=== PATIENT | male | born 1970 | race Caucasian/White ===

== ENCOUNTER 2018-11-10 09:01 | Day surgery (SDC) | payer OTHER, SELFPAY ==
[2018-11-10] VITALS (8 sets, daily range): BP systolic 111–153; BP diastolic 77–103; PULSE 55–98; RESP 14–17; TEMP 36.6–37.1; O2SAT 98–100; BMI 24.7
--- NOTE | 2018-11-10 09:20 | ED.DCSUM_ITS ---
History of Present Illness Chief Complaint: Male Pain/Injury Informant: Patient Onset: Today - 1 to 1.5 hours prior to presentation, Days - Since seen on November 07 [facility] emergency department and diagnosed with torsion that was detorsed manually and sent home for urology follow-up. Context: Sudden Onset Timing: Continuous Quality: Pain Location: Right testicle Current Severity: Moderate Maximum Severity: Severe Worsened by: Movement Relieved by: Nothing Associated Symptoms: Nausea Narrative: Sent is a 48-year-old male who has no past medical history and is a non-smoker and nondrinker who presents with abrupt onset of right testicular pain that awoke him from sleep. States he had similar presentation on Saturday. He was seen at outside facility. There was an ultrasound performed that revealed torsion of the right testicle. The right testicle was detorsed by the emergency physician. There was documentation of flow after detorsion. Patient was referred to urology. Patient has no other complaints or symptoms. Her head eating the drink since last evening. Prior similar symptoms: Yes - November 07 Recent Illness/Hospitalization: No - November 07 - Past Medical History (1) Torsion of right testicle Status: Acute Past Medical History - Allergies and Home Meds Allergies/Adverse Reactions: Allergies No Known Allergies Allergy (Verified 11/10/18 09:02) Primary Care Physician: [place], [place] [Primary Care Provider] - Prior records reviewed: Yes - Torsion right testicle Surgical History: no surgical history Lives: Alone Smoking Status: Never smoker Alcohol: None Drugs: None Review of Systems General: Denies: Chills, Fever, Malaise, Sweats Eyes: Denies: Visual changes - bilaterally, Blurred Vision - bilaterally ENT: Denies: Rhinorrhea, Sore throat Cardiovascular: Denies: Chest pain, Palpitations Respiratory: Denies: Dyspnea, Cough, Dyspnea on exertion Gastrointestinal: Reports: Nausea. Denies: Abdominal pain, Vomiting, Diarrhea, Melena, Hematochezia Genitourinary: Denies: Dysuria, Hematuria, Frequency Musculoskeletal: Denies: Myalgias, Arthralgias, Neck pain, Back pain, Swelling, Extremity Pain, -, - Skin: Denies: Rash, Wounds Neurological: Denies: Headache, Weakness, Numbness Hematologic: Denies: Easy bruising, Easy bleeding Physical Exam Vital Signs/Narrative: Vital Signs Temp Pulse Resp BP Pulse Ox 11/10/18 09:02 98.6 F 68 17 126/103 H 99 Inital Vital Signs reviewed: Yes General: Well nourished, Well developed, Acute Distress Head: Normocephalic, Atraumatic Eyes: Perrl, EOMI. Negative for: Pale conjunctiva, Scleral icterus ENT: Moist mucous membranes, No rhinorrhea Cardiovascular: Regular rate, Regular rhythm, No murmurs, Normal S1, Normal S2 Respiratory: No distress, CTA bilaterally Abdomen: Soft, Nontender, Nondistended, Normal bowel sounds Rectal: Deferred : - - Testicle is high riding, tender and swollen. There is no epididymal tenderness. He is circumcised. There is no urethral discharge noted. There is no tenderness of the left testicle. Skin: Normal color, No rash, No Trauma. Negative for: Cyanosis, Diaphoresis, Jaundice Neurological: Alert, Oriented x3, Cranial nerves II-XII grossly intact, Normal Strength, Normal Sensation Psychological: Normal affect, Normal Mood Diagnostic/Tx/Re-eval - Medical Decision Making In light of patient's history and ultrasound findings from outside facility urology was contacted, Dr. Hernandez. Plan is to take patient to the OR. Frontal diagnosis is torsion, epididymitis, orchitis. In light of ultrasound from outside facility gnosis and concern is for acute re-torsion of the right testicle. Urology was contacted and patient will be taken to the operating room. ED Disposition - Plan for ED Patient: Disposition: [facility] Diagnosis: Torsion of right testicle [facility]errals: [facility] [Primary Care Provider] -
[2018-11-10] MEDS: Morphine 4 MG/ML Syringe IV (09:31)
[2018-11-10] MEDS: Ondansetron 4 MG/2 ML Vial IV (09:32)
--- NOTE | 2018-11-10 09:32 | NURSING ---
BEN SURGERY RT TESTICLE TORSON
--- NOTE | 2018-11-10 09:35 | ED.RN ---
REPORT CALLED TO RAGHU IN [facility].
[2018-11-10 09:37] LABS: Hematocrit 47.8 % (40-54); Hemoglobin 15.7 g/dL (13.0-16.5); Mean Corp Hgb Conc 32.8 g/dL (32-36); Mean Corpuscular Hgb 30.8 pg (27.0-32.0); Mean Corpuscular Volume 93.7 fL (80-94); Mean Platelet Vol. 9.8 fl (6.2-12.0); Platelet Count 249 K/mm3 (150-450); RBC Distribution Width CV 12.7 % (11.6-14.6); RBC Distribution Width SD 43.8 fl (35.1-43.9); White Blood Count 11.8 K/mm3 (4.4-11.0)
[2018-11-10 09:53] LABS: Anion Gap 5 (5-15); BUN 11 mg/dL (7-18); BUN/Creat Ratio 10.4 RATIO (10-20); Calcium,Total 9.4 mg/dL (8.5-10.1); Chloride 105 mmol/L (98-107); Creatinine, Serum 1.06 mg/dL (0.70-1.30); EST Glomerular Filtration Rate 80 mL/min (>60); Est Glom Filt Rate - Afr Amer 96 mL/min (>60); Estimated Creatinine Clearance 83.35 ml/min; Glucose 104 mg/dL (74-106); Sodium Level 139 mmol/L (136-145)
--- NOTE | 2018-11-10 10:12 | PCM.CONS.U ---
Reason for Consult Date of Consultation: 11/10/18 Reason for Consultation: Right testicular torsion History of Present Illness: The patient is a 48 year old male who presented to the emergency room with right severe testicular pain ultrasound was done which demonstrated possible torsion of the testicle. He said he presented on Saturday to an outside emergency room with right severe pain was diagnosed with torsion and underwent detorsion in the ER and was sent home. Now he comes back with right testicular torsion and severe pain. Explained to the patient was taken to surgery immediately for exploration as possible as testicle in the right side is necrotic and nonviable he may have to have a right orchiectomy. He also undergo bilateral orchiopexy scrotal. Past Medical History Allergies No Known Allergies Allergy (Verified 11/10/18 09:02) Home Medications: Ambulatory Orders Medication Instructions Recorded Vitamin D 1 dose PO DAILY 11/10/18 Surgical History: no surgical history Lives: Alone Smoking Status: Never smoker Alcohol: None Drugs: None Review of Systems Constitutional: Denies: Chills, Fever, Weight Change HEENT: Denies: Head Aches, Sinus Congestion, Sinus Drainage Cardiovascular: Denies: Chest Pain, Palpitations Respiratory: Denies: Cough, Shortness of breath at rest, Sputum production Gastrointestinal: Denies: Abdominal Pain, Nausea, Vomiting Genitourinary: Denies: Dysuria Musculoskeletal: Denies: Joint Pain, Joint Tenderness Skin: Denies: Rash, Wounds Neurological: Denies: Numbness, Tingling, Focal weakness Psychiatric: Denies: Anxiety, Depression, Homicidal Ideations, Suicidal Ideations Hematologic/ Lymphatic: Denies: Easy Bruising, Easy Bleeding Physical Exam - Physical Exam Vital Signs Temp 98.3 F 11/10/18 09:26 Pulse 76 11/10/18 09:26 Resp 14 11/10/18 09:26 BP 153/84 H 11/10/18 09:26 Pulse Ox 99 11/10/18 09:26 Intake & Output 11/08/18 11/09/18 11/10/18 23:59 23:59 23:59 Weight: 73.7 kg General: Alert, Oriented x3 HEENT: Atraumatic Oral: Moist Mucosa Neck: Supple Lungs: Normal air movement Cardiovascular: Regular Rhythm Abdomen: Soft, Obese - Right testicle swollen tender and high riding Laboratory Tests Past 24 Hrs 11/10/18 11/10/18 09:25 09:25 WBC 11.8 H RBC 5.10 Hgb 15.7 Hct 47.8 MCV 93.7 MCH 30.8 MCHC 32.8 RDW Std Deviation 43.8 RDW Coeff of Abhishek 12.7 Plt Count 249 MPV 9.8 Sodium 139 Potassium 4.0 Chloride 105 Carbon Dioxide 29.0 Anion Gap 5 BUN 11 Creatinine 1.06 Estim Creat Clear Calc 83.35 Est GFR (MDRD) Af Amer 96 Est GFR (MDRD) Non-Af 80 BUN/Creatinine Ratio 10.4 Glucose 104 Calcium 9.4 Assessment/Plan All Active Problems Torsion of right testicle (Acute) Right testicular torsion plan to proceed with scrotal exploration possible orchiectomy if right testicles nonviable necrotic and possible bilateral orchiopexy. Will be taken emergently to surgery today.
--- NOTE | 2018-11-10 10:15 | DCINST_ITS ---
Discharge Diet: Light diet - advance as tolerated Discharge Activity: Return to Normal Activity Call your doctor if your incision/area has: Continuous Slow Oozing Suture Line Care: Avoid Pulling/Pushing, Avoid Pinching/Bending Allergies/Adverse Reactions: Allergies No Known Allergies Allergy (Verified 11/10/18 09:02) Medications to take at Discharge Vitamin D 1 dose PO DAILY 11/10/18 Primary Care Physician: [facility] [Primary Care Provider] - Test Results: Test results from this visit will be discussed in further detail at your follow- up appointment, if applicable. Please Follow Up With: Kei Hernandez MD When: please call to make an appointment.
[2018-11-10] MEDS: Lactated Ringers 1,000 ML 75 ML IV (10:20)
[2018-11-10] MEDS: Bupivacaine Mpf 0.5% 30 ML VIAL (10:29)
--- NOTE | 2018-11-10 10:42 | PCM.OPRPT ---
Report of Operation Date of Procedure: 11/10/18 Pre-Operative Diagnosis: Right testicular torsion Post-Operative Diagnosis: The same Surgery/Procedure Performed:: Scrotal exploration and bilateral orchiopexy Description of Surgical Findings:: 48-year-old male was diagnosed with testicular torsion outside hospital was sent home, presented with severe onset of severe right ocular pain. On evaluation he had a high riding right testicle is very tender on exam. 48-year-old male taken back to the operating room at the smooth induction of anesthesia, he could see the testicle detorsed while he went underwent anesthesia and it did twisted and came back down to the scrotum, we then shaved prepped and draped in the testicles in usual sterile fashion made an incision in the midline raphae dissected down to the right testicle open up the tunica and the testicle had been untwisted after anesthesia the epididymis was severely inflamed, I then opened up the left tunica deliver the left testicle created the pouch on both the right and left side and then reimplanted the left testicle to the pouch in the right testicle and into the pouch and then it did a three-point fixation using Ethibond suture to secure both testicles on each side to 3 stitches on the right testicle 3 stitches in the left testicle to perform a scrotal orchiopexy. After the scrotal pexy was performed I removed the appendix of the testicle in the right and left testicle and then we closed the midline raphae incision with chromic and Monocryl stitches fluffs and dressings were placed patient will be discharged home with antibiotics and pain medicine will follow-up in a week in the office. Type of Anesthesia:: General Drains: none - Admit VTE Documentation VTE Present on Admission: No VTE Mechan Device Prophylaxis: SCD's
[2018-11-10] MEDS: HYDROcodone Bitartrate/Apap 5/325 Tablet PO (13:04)
== END 2018-11-10 13:55 | disposition home or self-care (01) ==
LOC: ED 09:32 → SDC 09:37 → AC 09:38
PROVIDERS: Emergency Provider Emergency Medicine; Visit Provider Urology
PROC: (CPT 54600; principal; 2018-11-10 09:45)
DX: N44.00 Torsion of testis, unspecified (principal)
CPT/HCPCS: 00930; 54640; 80048; 85027; 99282; J7030; A4216; J2405